=== PATIENT | female | born 1980 | race Caucasian/White ===

== ENCOUNTER 2016-02-14 13:48 | Emergency (ER) | payer OTHER ==
[~2016-02-14 13:48] MED LIST: ACID1TAB PO; CEPH-264 PO; CETI10TA22 PO; DOCU-27 PO; DOXY100C2 PO; DULO20CA PO; ESOM20CA PO; FERR-26 PO; FLUT9.9S NS; IBUP-1060 PO; OXYC-323 PO
[2016-02-14 15:39] LABS: NEG OBC UR NEG; POS OBC UR POS
[2016-02-14] MEDS: FENTANYL PF 100 MCG/2 ML VIAL. IV PRN ×2 (15:43→16:27)
[2016-02-14] MEDS ORDERED: ONDANSETRON PF 4 MG/2 ML VIAL. IV ONE (15:45)
--- NOTE | 2016-02-14 15:45 | ED.ADGEN ---
Past Medical History Past Medical History: Anemia, Asthma, Fibromyalgia, Kidney Stone, Other Additional Past Medical Histor: Allergies, history of kidney stones Past Surgical History: No Surgical History Alcohol Use: None Drug Use: None Adult General Chief Complaint Chief Complaint: ABDOMINAL PAIN HPI HPI Patient is a 36 year old woman, history of hysterectomy performed one month ago , after a tubal ligation revealed a mass in her left ovary, and an enlarged uterus. Patient states that she was cleared to return to work yesterday by Dr. Armendariz after a visit in his office, where he performed an examination and she was told that she was healing properly. Patient states that she had continued to have some cramping and sharp shooting pains in her lower abdomen, she states that she has not taken any pain medication today, but did return to work, has been using ibuprofen and Percocet at home previously without issue. 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 Patient states that she had no discrete injuries, is having a small amount of yellowish discharge from the vagina, but denies any urinary complaints at this time, any weakness emesis or tingling, any bleeding, any vomiting, states she is feeling mildly nauseous. Patient was started on Levaquin yesterday for presumed urinary tract infection. No other medication changes or symptoms. Review of Systems Review of Systems Constitutional: Denies fever or chills. [] Eyes: Denies change in visual acuity. [] HENT: Denies nasal congestion or sore throat. [] Respiratory: Denies cough or shortness of breath. [] Cardiovascular: Denies chest pain or edema. [] GI: Denies vomiting, bloody stools or diarrhea. Pelvic sharp shooting abdominal pain, associated with nausea. : Denies dysuria. [] Musculoskeletal: Denies back pain or joint pain. [] Integument: Denies rash. [] Neurologic: Denies headache, focal weakness or sensory changes. [] Endocrine: Denies polyuria or polydipsia. [] Lymphatic: Denies swollen glands. [] Psychiatric: Denies depression or anxiety. [] Current Medications Current Medications Current Medications Medications (Trade) Dose Ordered Sig/Byron Start Time Stop Time Status Last Admin Dose Admin Fentanyl Citrate (Fentanyl 2ml Vial) 50 mcg PRN Q15MIN PRN 02/14/16 15:45 02/14/16 18:34 DC 02/14/16 16:27 50 MCG Naproxen (Naprosyn) 250 mg 1X ONCE 02/14/16 17:00 02/14/16 17:01 DC 02/14/16 17:21 250 MG Ondansetron HCl (Zofran) 4 mg 1X ONCE 02/14/16 15:45 02/14/16 15:46 DC 02/14/16 15:44 4 MG Oxycodone/ Acetaminophen (Percocet 7.5/ 325) 1 tab 1X ONCE 02/14/16 17:00 02/14/16 17:01 DC 02/14/16 17:21 1 TAB Allergies Allergies Allergies Coded Allergies Type Severity Reaction Last Updated Verified Penicillins Allergy Severe Anaphylaxis 01/22/16 Yes Sulfa (Sulfonamide Antibiotics) Allergy Severe Anaphylaxis 01/22/16 Yes cyclobenzaprine Allergy Severe Anaphylaxis 01/22/16 Yes erythromycin base Allergy Severe Anaphylaxis 01/22/16 Yes gatifloxacin Allergy Severe Anaphylaxis 01/22/[address] [facility] And Derivatives Allergy Intermediate 01/22/16 Yes fexofenadine Allergy Intermediate Hives 01/22/16 Yes melon Allergy Intermediate 01/22/16 Yes nut - unspecified Allergy Intermediate 01/22/16 Yes tetracycline Allergy Intermediate Unknown 01/22/16 Yes Physical Exam Physical Exam Constitutional: Well developed, well nourished, moderate distress secondary to pain, non-toxic appearance. [] HENT: Normocephalic, atraumatic, bilateral external ears normal, oropharynx moist, no oral exudates, nose normal. [] Eyes: PERRLA, EOMI, conjunctiva normal, no discharge. [] Neck: Normal range of motion, no tenderness, supple, no stridor. [] Cardiovascular:Heart rate regular rhythm, no murmur, S1, S2, rubs or gallops. [] Lungs & Thorax: Bilateral breath sounds clear to auscultation, no wheezing, rhonchi, rales. No chest tenderness or crepitus. [] Abdomen: Bowel sounds normal, soft, patient with sentences palpation across the lower abdomen, there is no rebound, rigidity, no guarding, patient with well- healed laparoscopic surgical incisions noted., no masses, no pulsatile masses. [ ] Skin: Warm, dry, no erythema, no rash. [] Back: No tenderness, no CVA tenderness. [] Extremities: No tenderness, no cyanosis, no clubbing, ROM intact, no edema. [] Neurologic: Alert and oriented X 3, normal motor function, normal sensory function, no focal deficits noted. [] Psychologic: Affect normal, judgement normal, mood normal. [] Current Patient Data Vital Signs Vital Signs Date Time Temp Pulse Resp B/P Pulse Ox O2 Delivery O2 Flow Rate FiO2 02/14/16 17:21 12 02/14/16 16:27 100 Room Air 02/14/16 16:23 82 113/62 02/14/16 15:17 98.6 98.6 Lab Values Laboratory Tests Test 02/14/16 14:24 02/14/16 15:05 Urine Collection Type Unknown Urine Color Yellow Urine Clarity Cloudy Urine pH 5.5 Urine Specific [place] 1.015 Urine Protein Negativemg/dL (NEG-TRACE) Urine Glucose (UA) Negativemg/dL (NEG) Urine Ketones (Stick) Negativemg/dL (NEG) Urine Blood Negative (NEG) Urine Nitrite Negative (NEG) Urine Bilirubin Negative (NEG) Urine Urobilinogen Dipstick 0.2mg/dL (0.2 mg/dL) Urine Leukocyte Esterase Small (NEG) Urine RBC 0/HPF (0-2) Urine WBC >40/HPF (0-4) Urine Bacteria 0/HPF (0-FEW) Urine Mucus Marked/LPF Urine Test Negative (NEG) White Blood Count 7.1x10^3/uL (4.0-11.0) Red Blood Count 4.32x10^6/uL (3.50-5.40) Hemoglobin 11.1g/dL (12.0-15.5) L Hematocrit 34.5% (36.0-47.0) L Mean Corpuscular Volume 80fL (79-100) Mean Corpuscular Hemoglobin 26pg (25-35) Mean Corpuscular Hemoglobin Concent 32g/dL (31-37) Red Cell Distribution Width 19.3% (11.5-14.5) H Platelet Count 251x10^3/uL (140-400) Neutrophils (%) (Auto) 68% (31-73) Lymphocytes (%) (Auto) 26% (24-48) Monocytes (%) (Auto) 5% (0-9) Eosinophils (%) (Auto) 0% (0-3) Basophils (%) (Auto) 1% (0-3) Neutrophils # (Auto) 4.8x10^3uL (1.8-7.7) Lymphocytes # (Auto) 1.9x10^3/uL (1.0-4.8) Monocytes # (Auto) 0.3x10^3/uL (0.0-1.1) Eosinophils # (Auto) 0.0x10^3/uL (0.0-0.7) Basophils # (Auto) 0.0x10^3/uL (0.0-0.2) Sodium Level 138mmol/L (136-145) Potassium Level 4.9mmol/L (3.5-5.1) Chloride Level 102mmol/L (98-107) Carbon Dioxide Level 25mmol/L (21-32) Anion Gap 11 (6-14) Blood Urea Nitrogen 17mg/dL (7-20) Creatinine 0.8mg/dL (0.6-1.0) Estimated GFR (Cockcroft-Gault) 81.2 Glucose Level 79mg/dL (70-99) Calcium Level 9.4mg/dL (8.5-10.1) Laboratory Tests 02/14/16 15:05 Laboratory Tests 02/14/16 15:05 EKG EKG Not indicated. [] Radiology/Procedures Radiology/Procedures Not indicated. [] Course & Med Decision Making Course & Med Decision Making Pertinent Labs and Imaging studies reviewed. (See chart for details) examination deferred at this time due to patient discomfort, and report of a normal examination performed yesterday by her SHEET MANUFACTURING SUPERVISOR. Patient has no evidence of concerning medical examination findings today. I did contact Dr. Mora regarding patient's presentation and her discomfort, patient has been ordered and has received 2 doses of IV pain medication. He agrees with plan hold off on additional evaluation as the patient is well-appearing, and has had normal laboratory studies in the ED. Will administer Percocet, naproxen, plan to reassess patient's pain, he recommends the patient be off work for an additional 7 days, she is scheduled to follow-up with him on 21 February. Patient received IV medication as stated, also first dose oral medication the ED , on reevaluation she is ambulating without difficulty, and stated that she would like to go home. She is agreeable plan to continue the Levaquin, to use Percocet, Colace, to follow-up with her SHEET MANUFACTURING SUPERVISOR as stated in 8 days, and return to the ED for any concerning symptoms as discussed. Patient discharged with her father, who states that he will be assisting with activities of daily living to ensure the patient has extra rest. Dragon Disclaimer Dragon Disclaimer This electronic medical record was generated, in whole or in part, using a voice recognition dictation system. Departure Impression: Primary Impression: Postoperative pain Disposition: HOME, SELF-CARE Condition: IMPROVED Scripts Docusate Sodium (Colace)100 Mg Capsule1 Cap PO BID PRN CONSTIPATION #30 CAP Prov:BENJAMIN SMYTH DO 02/14/16 Oxycodone/Apap 5-325 (Percocet 5-325 Mg Tablet)1 Each Tablet1-2 Tab PO Q4-6HRS PRN PAIN #40 TAB Prov:BENJAMIN SMYTH DO 02/14/16 Naproxen 250 Mg [id number] Mg PO BID PRN PAIN #14 Prov:BENJAMIN SMYTH DO 02/14/16 BENJAMIN SMYTH DO Feb 14, 2016 15:45
[2016-02-14 15:48] LABS: BASO % 1 % (0-3); EOS % 0 % (0-3); HEMATOCRIT 34.5 % (36.0-47.0); HEMOGLOBIN 11.1 g/dL (12.0-15.5); LYMPH # 1.9 x10^3/uL (1.0-4.8); LYMPH % 26 % (24-48); MEAN CORPUSCULAR HEMOGLOBIN 26 pg (25-35); MEAN CORPUSCULAR HGB CONC 32 g/dL (31-37); MEAN CORPUSCULAR VOLUME 80 fL (79-100); MONO % 5 % (0-9); NEUT % 68 % (31-73); PLATELET COUNT 251 x10^3/uL (140-400); RED BLOOD COUNT 4.32 x10^6/uL (3.50-5.40); RED CELL DISTRIBUTION WIDTH 19.3 % (11.5-14.5); WHITE BLOOD COUNT 7.1 x10^3/uL (4.0-11.0)
[2016-02-14 15:51] LABS: CALCIUM 9.4 mg/dL (8.5-10.1); CREATININE 0.8 mg/dL (0.6-1.0); GFR 81.2; POTASSIUM 4.9 mmol/L (3.5-5.1)
[2016-02-14 15:52] LABS: BILIRUBIN,URINE NEGATIVE (NEG); GLUCOSE,URINE NEGATIVE (NEG); NITRITE,URINE NEGATIVE (NEG); PH,URINE 5.5; PROTEIN,URINE NEGATIVE (NEG-TRACE); UROBILINOGEN,URINE 0.2 mg/dL (0.2 mg/dL)
[2016-02-14 16:12] LABS: BACTERIA,URINE 0 /HPF (0-FEW); RBC,URINE 0 /HPF (0-2); WBC,URINE >40 /HPF (0-4)
[2016-02-14 16:23] VITALS: BP 113/62
[2016-02-14] MEDS ORDERED: OXYCODONE/APAP 7.5/325 TABLET. PO ONE (17:00)
[2016-02-14] MEDS ORDERED: NAPROXEN 250 MG TABLET PO ONE (17:00)
[2016-02-14] MEDS ORDERED: DOCU-27 PO (18:15)
[2016-02-14] MEDS ORDERED: OXYC-323 PO (18:15)
[2016-02-14] MEDS ORDERED: NAPR250T2 PO (18:15)
== END 2016-02-14 18:34 | disposition home or self-care (01) ==
LOC: ER 13:48
DX: G89.18 Other acute postprocedural pain (principal); R10.30 Lower abdominal pain, unspecified; R11.0 Nausea; J45.909 Unspecified asthma, uncomplicated; M79.7 Fibromyalgia; Z87.442 Personal history of urinary calculi; Z90.710 Acquired absence of both cervix and uterus; Z88.1 Allergy status to other antibiotic agents; Z88.2 Allergy status to sulfonamides; Z88.0 Allergy status to penicillin; Z88.8 Allergy status to other drugs, medicaments and biological substances; Z91.018 Allergy to other foods; Z98.51 Tubal ligation status
CPT/HCPCS: 36415; 80048; 81001; 81025; 85027; 87086; 96374; 96375; 96376; 99284; J2405; J3010

== ENCOUNTER → 2016-02-18 | Outpatient (CLI) | payer OTHER ==
[2016-02-14 16:23] VITALS: BP 113/62
[~2016-02-18] MED LIST changes: +IOHEXOL 300 MG/ML 50 ML VIAL. IJ ONE; +NAPR250T2 PO
--- NOTE | 2016-02-18 10:42 | RAD ---
EXAM: Intravenous pyelogram. HISTORY: Bladder injury during hysterectomy. TECHNIQUE: A head control clerk image of the abdomen and pelvis was obtained. Serial images were then obtained following the intravenous administration of 50 cc Omnipaque 300. A post void image was obtained at the conclusion of the exam. COMPARISON: None. FINDINGS: The head control clerk image of the abdomen and pelvis demonstrates a nonobstructive bowel gas pattern. 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 The images obtained following the intravenous administration of contrast demonstrate symmetric contrast opacification of the renal parenchyma. The kidneys appear normal in size. There is subsequent excretion of contrast into the renal collecting system. There is mild left hydronephrosis and hydroureter. There is a short segment of the left ureter which does not opacify with contrast. No clear intrinsic urothelial lesion is seen. There is no evidence of bladder extravasation. There is no significant bladder voiding on the post void bladder image. IMPRESSION: 1. Mild left hydronephrosis and hydroureter. There is a short segment of the distal left ureter which does not opacify on the submitted images. This may be due to peristalsis. However, the possibility of an intrinsic urothelial lesion or narrowing due to an extrinsic etiology is not excluded on this exam. 2. No significant voiding on post void images. 3. No evidence of bladder extravasation.
== END | disposition home or self-care (01) ==
LOC: RAD 08:30
PROVIDERS: ATTEND Obstetrics & Gynecology
DX: Z09 Encounter for follow-up examination after completed treatment for conditions other than malignant neoplasm (principal); S37.20XA Unspecified injury of bladder, initial encounter
CPT/HCPCS: 74400; Q9967